=== PATIENT | male | born 1930 | race Caucasian/White ===

== ENCOUNTER 2017-11-09 02:26 | Observation (INO) | payer MEDICARE, BC ==
--- NOTE | 2017-11-09 02:55 | EDM.PDOC ---
ED HPI GENERAL MEDICAL PROBLEM - General Chief Complaint: Neuro Symptoms/Deficits Stated Complaint: FALL MEDICAL VIA [facility] Time Seen by Provider: 11/09/17 02:44 Source of Information: Reports: Patient, EMS, Old Records, RN Notes Reviewed History Limitations: Reports: Other (Elderly, frail) - History of Present Illness INITIAL COMMENTS - FREE TEXT/NARRATIVE: EMS transfer from home after 4 falls 87-year-old male with history of hypertension and chronic lymphedema lives at home with his , uses a walker to get around, no recent illness or infection but has had gradually declining strength over the last 2 years. Today he had 4 falls at home, 3 of them he was able to get up on his own blood before they just couldn't get enough strength is legs to stand up. He has chronic pain in his right shoulder which limits his strength. No pain from falling tonight. He is not on blood thinners In September 2015 he was admitted for 2 nights to the hospital because of weakness and falls and discharged to rehabilitation bed to build up his strength with therapy. No recent illness or infection, no chest pain shortness of breath or abdominal pain No history of heart attack or stroke EMS personnel lift assisted him, he was able to take a few steps but then became very shaky with a walker. - Related Data Allergies Allergy/AdvReac Type Severity Reaction Status Date / Time No Known Allergies Allergy Verified 11/09/17 02:30 Home Meds: Home Meds Chlorthalidone 1 tab PO DAILY 09/23/15 [History] Citalopram Hydrobromide [Celexa] 1 tab PO DAILY 09/23/15 [History] Furosemide 1 tab PO DAILY 09/23/15 [History] Methylphenidate HCl 1 tab PO TID 09/23/15 [History] Multivitamin [Chewable Multi Vitamin] 1 tab PO DAILY 09/23/15 [History] Simvastatin 1 tab PO BEDTIME 09/23/15 [History] Aspirin 81 mg PO DAILY 11/09/17 [History] Past Medical History Cardiovascular History: Reports: Heart Murmur Other Genitourinary History: CKD stage 3 - Past Surgical History Other Male Surgeries/Procedures: circumcision Other Musculoskeletal Surgeries/Procedures:: hx of carpal tunnel surgery bilateral Social & Family History - Tobacco Use Smoking Status *Q: Unknown Ever Smoked Years of Tobacco use: 20 Packs/Tins Daily: 1 Used Tobacco, but Quit: Yes Month Tobacco Last Used: 40 years ago Second Hand Smoke Exposure: No - Recreational Drug Use Recreational Drug Use: No ED ROS GENERAL - Review of Systems Review Of Systems: See Below Constitutional: Reports: Weakness, Other (No recent illness). Denies: Diaphoresis, Decreased Appetite, Weight Loss HEENT: Reports: No Symptoms Respiratory: Reports: No Symptoms Cardiovascular: Reports: Blood Pressure Problem (On treatment), Edema (Long- standing). Denies: Chest Pain Endocrine: Reports: Fatigue GI/Abdominal: Reports: No Symptoms : Reports: No Symptoms Musculoskeletal: Reports: Shoulder Pain (Right side for many months) Skin: Reports: Change in Color (Darker color on his left foot). Denies: Cyanosis, Rash Neurological: Reports: Difficulty Walking (Use walker), Weakness. Denies: Confusion, Dizziness, Headache Psychiatric: Reports: No Symptoms Hematologic/Lymphatic: Reports: No Symptoms ED EXAM, GENERAL - Physical Exam Exam: See Below Exam Limited By: Other (Elderly frail) General Appearance: Alert, No Apparent Distress, Other (Vital signs within normal, no difficulty speaking or breathing) Eye Exam: Bilateral Eye: EOMI, Normal Inspection Ears: Normal External Exam, Normal Canal, Normal TMs, Hearing Loss (Mild) Nose: Normal Inspection, Normal Mucosa Throat/Mouth: Normal Inspection, Normal Oropharynx, Normal Voice, Other ( Several teeth missing) Head: Atraumatic, Normocephalic Neck: Supple, Non-Tender. No: Carotid Bruit, Lymphadenopathy (R), Lymphadenopathy (L), Tender Lateral, Tender Midline Respiratory/Chest: No Respiratory Distress, Lungs Clear, No Accessory Muscle Use , Chest Non-Tender Cardiovascular: Normal Peripheral Pulses, Regular Rate, Rhythm, Systolic Murmur (Very faint loudest at left sternal border) Peripheral Pulses: 3+: Dorsalis Pedis (L), Dorsalis Pedis (R) GI/Abdominal: Normal Bowel Sounds, Soft, Non-Tender (Male) Exam: No Hernia Extremities: Normal Capillary Refill, Pedal Edema, Redness (Mild, left christianson and foot). No: Leg Pain, Increased Warmth, Pallor Neurological: Oriented, No Motor/Sensory Deficits Psychiatric: Normal Affect Skin Exam: Warm, Dry, Normal Color Course - Vital Signs Last Recorded V/S: Last Vital Signs Temp 36.8 C 11/09/17 02:28 Pulse 76 11/09/17 02:28 Resp 15 11/09/17 02:28 BP 120/56 L 11/09/17 02:28 Pulse Ox 95 11/09/17 02:28 - Orders/Labs/Meds Orders: Active Orders 24 hr Category Date Time Status EKG Documentation Completion [RC] ASDIRECTED Care 11/09/17 02:49 Active UA W/MICROSCOPIC [URIN] Stat Lab 11/09/17 03:03 Ordered EKG 12 Lead [EK] Routine Ther 11/09/17 02:48 Ordered Labs: Laboratory Tests 11/09/17 11/09/17 11/09/17 Range/Units 02:48 02:48 02:49 WBC 9.4 (4.5-11.0) K/uL RBC 3.31 L (4.30-5.90) M/uL Hgb 10.3 L (12.0-15.0) g/dL Hct 31.8 L (40.0-54.0) % MCV 96 (80-98) fL MCH 31 (27-31) pg MCHC 32 (32-36) % Plt Count 229 (150-400) K/uL Sodium 146 (140-148) mmol/L Potassium 3.8 (3.6-5.2) mmol/L Chloride 106 (100-108) mmol/L Carbon Dioxide 28 (21-32) mmol/L Anion Gap 12.3 (5.0-14.0) mmol/L BUN 65 H (7-18) mg/dL Creatinine 1.7 H (0.8-1.3) mg/dL Est Cr Clr Drug Dosing 33.94 mL/min Estimated GFR (MDRD) 38 L (>60) Glucose 104 (74-106) mg/dL Lactic Acid 1.3 (0.4-2.0) mmol/L Calcium 9.0 (8.5-10.1) mg/dL Total Bilirubin 0.4 (0.2-1.0) mg/dL AST 42 H (15-37) U/L ALT 31 (12-78) U/L Alkaline Phosphatase 55 (46-116) U/L Troponin I 0.056 (0.000-0.056) ng/mL Total Protein 6.3 L (6.4-8.2) g/dL Albumin 3.7 (3.4-5.0) g/dL Globulin 2.6 (2.3-3.5) g/dL Albumin/Globulin Ratio 1.4 (1.2-2.2) - Re-Assessments/Exams Free Text/Narrative Re-Assessment/Exam: 11/09/17 02:57 79-year-old male with gradually increasing weakness, for falls at home today, unable to get up on his own or with help from his . EMS provided lift assist but because he was very shaky on his feet even with his walker, he was brought in for evaluation. Generalized weakness Labs show normal troponin, mild anemia, unchanged from previous, moderate chronic renal failure, unchanged from previous, normal electrolytes and hepatic profile only minimal elevation in AST too weak to go home, consult hospitalist for admission, will need physical therapy rehabilitation correction facility placement or rehabilitation. 11/09/17 03:39 Departure - Departure Time of Disposition: 03:40 Disposition: Refer to Observation Condition: Serious Clinical Impression: Generalized weakness, Frequent falls - Discharge Information Referrals: PCP,None [Primary Care Provider] - Forms: ED Department Discharge - My Orders Last 24 Hours: My Active Orders 11/09/17 02:48 EKG 12 Lead [EK] Routine 11/09/17 02:49 EKG Documentation Completion [RC] ASDIRECTED 11/09/17 03:03 UA W/MICROSCOPIC [URIN] Stat - Assessment/Plan Last 24 Hours: My Active Orders 11/09/17 02:48 EKG 12 Lead [EK] Routine 11/09/17 02:49 EKG Documentation Completion [RC] ASDIRECTED 11/09/17 03:03 UA W/MICROSCOPIC [URIN] Stat
--- NOTE | 2017-11-09 04:26 | PCM.HP ---
H&P History of Present Illness - General Date of Service: 11/09/17 Admit Problem/Dx: Admission Diagnosis/Problem Admission Diagnosis/Problem Weakness Source of Information: Patient, EMS, Provider, RN History Limitations: Reports: No Limitations - History of Present Illness Initial Comments - Free Text/Narative: EMS transfer from home after 4 falls 87-year-old male with history of hypertension and chronic lymphedema lives at home with his , uses a walker to get around, no recent illness or infection but has had gradually declining strength over the last 2 years. Today he had 4 falls at home, 3 of them he was able to get up on his own before they just couldn't get enough strength is legs to stand up. He has chronic pain in his right shoulder which limits his strength. No pain from falling tonight. He is not on blood thinners In September 2015 he was admitted for 2 nights to the hospital because of weakness and falls and discharged to rehabilitation bed to build up his strength with therapy. No recent illness or infection, no chest pain shortness of breath or abdominal pain No history of heart attack or stroke EMS personnel lift assisted him, he was able to take a few steps but then became very shaky with a walker. Onset of Symptoms: Reports: Gradual Duration of Symptoms: Reports: Day(s):, Constant Location: Reports: Generalized Quality: Reports: Same as Previous Episode Severity: Moderate Improves with: Reports: None Worsens with: Reports: None Associated Symptoms: Reports: Weakness - Related Data Allergies/Adverse Reactions: Allergies Allergy/AdvReac Type Severity Reaction Status Date / Time No Known Allergies Allergy Verified 11/09/17 02:30 Home Medications: Home Meds Chlorthalidone 1 tab PO DAILY 09/23/15 [History] Citalopram Hydrobromide [Celexa] 1 tab PO DAILY 09/23/15 [History] Furosemide 1 tab PO DAILY 09/23/15 [History] Methylphenidate HCl 1 tab PO TID 09/23/15 [History] Multivitamin [Chewable Multi Vitamin] 1 tab PO DAILY 09/23/15 [History] Simvastatin 1 tab PO BEDTIME 09/23/15 [History] Aspirin 81 mg PO DAILY 11/09/17 [History] Past Medical History Cardiovascular History: Reports: Heart Murmur Other Genitourinary History: CKD stage 3 - Past Surgical History Other Male Surgeries/Procedures: circumcision Other Musculoskeletal Surgeries/Procedures:: hx of carpal tunnel surgery bilateral Social & Family History - Tobacco Use Smoking Status *Q: Unknown Ever Smoked Years of Tobacco use: 20 Packs/Tins Daily: 1 Used Tobacco, but Quit: Yes Month Tobacco Last Used: 40 years ago Second Hand Smoke Exposure: No - Recreational Drug Use Recreational Drug Use: No - Living Situation & Occupation Living situation: Reports: Occupation: Retired (lives with , [place] in [place], [place]. 3 grown children live in the [facility]. Has a home health aide once a week.) H&P Review of Systems - Review of Systems: Review Of Systems: See Below General: Reports: Weakness (for the past few days, several falls at home, tonight unable to get up, called EMS.) HEENT: Reports: No Symptoms Pulmonary: Reports: No Symptoms Cardiovascular: Reports: No Symptoms Gastrointestinal: Reports: No Symptoms Genitourinary: Reports: No Symptoms Musculoskeletal: Reports: No Symptoms Skin: Reports: No Symptoms Psychiatric: Reports: No Symptoms Neurological: Reports: No Symptoms Hematologic/Lymphatic: Reports: No Symptoms Immunologic: Reports: No Symptoms Exam - Exam Exam: See Below - Vital Signs Vital Signs: Last Vital Signs Temp 36.8 C 11/09/17 02:28 Pulse 69 11/09/17 04:00 Resp 14 11/09/17 04:00 BP 116/63 11/09/17 04:00 Pulse Ox 93 L 11/09/17 04:00 Weight: 92.533 kg - Exam General: Alert, Oriented, Cooperative HEENT: PERRLA, Conjunctiva Clear, EACs Clear, EOMI, Hearing Intact, Mucosa Moist & Barrera, Nares Patent, Other (upper Dentures (left at home), lower natural teeth) Neck: Supple, Trachea Midline Lungs: Clear to Auscultation, Normal Respiratory Effort Cardiovascular: Regular Rate, Regular Rhythm, Normal S1, Normal S2 GI/Abdominal Exam: Normal Bowel Sounds, Soft, Non-Tender, No Organomegaly, No Distention, Other (ventral hernia noted, non-tender to palpation) (Male) Exam: No Hernia, Normal Inspection Rectal (Males) Exam: Deferred Back Exam: Normal Inspection, Full Range of Motion, NT Extremities: Normal Inspection, Normal Range of Motion, Non-Tender, No Pedal Edema, Normal Capillary Refill, Pedal Edema Peripheral Pulses: 2+: Radial (L), Radial (R), Dorsalis Pedis (L), Dorsalis Pedis (R) Skin: Warm, Dry, Intact, Other (redness noted to left anterior knee, and anterior lower leg) Neurological: Cranial Nerves Intact, Reflexes Equal Bilateral, Strength Equal Bilateral, Normal Speech, Normal Tone, Sensation Intact Neuro Extensive - Mental Status: Alert, Oriented x3, Normal Mood/Affect, Normal Cognition, Memory Intact Psychiatric: Alert, Normal Affect, Normal Mood - Patient Data Lab Results Last 24 hrs: Laboratory Results - last 24 hr 11/09/17 11/09/17 11/09/17 Range/Units 02:48 02:48 02:49 WBC 9.4 (4.5-11.0) K/uL RBC 3.31 L (4.30-5.90) M/uL Hgb 10.3 L (12.0-15.0) g/dL Hct 31.8 L (40.0-54.0) % MCV 96 (80-98) fL MCH 31 (27-31) pg MCHC 32 (32-36) % Plt Count 229 (150-400) K/uL Sodium 146 (140-148) mmol/L Potassium 3.8 (3.6-5.2) mmol/L Chloride 106 (100-108) mmol/L Carbon Dioxide 28 (21-32) mmol/L Anion Gap 12.3 (5.0-14.0) mmol/L BUN 65 H (7-18) mg/dL Creatinine 1.7 H (0.8-1.3) mg/dL Est Cr Clr Drug Dosing 33.94 mL/min Estimated GFR (MDRD) 38 L (>60) Glucose 104 (74-106) mg/dL Lactic Acid 1.3 (0.4-2.0) mmol/L Calcium 9.0 (8.5-10.1) mg/dL Total Bilirubin 0.4 (0.2-1.0) mg/dL AST 42 H (15-37) U/L ALT 31 (12-78) U/L Alkaline Phosphatase 55 (46-116) U/L Troponin I 0.056 (0.000-0.056) ng/mL Total Protein 6.3 L (6.4-8.2) g/dL Albumin 3.7 (3.4-5.0) g/dL Globulin 2.6 (2.3-3.5) g/dL Albumin/Globulin Ratio 1.4 (1.2-2.2) Result Diagrams: 11/09/17 02:48 11/09/17 02:48 *Q Meaningful Use (ADM) - VTE *Q VTE Criteria *Q: - Stroke *Q Stroke Criteria *Q: - AMI *Q AMI Criteria *Q: - Problem List (1) Frequent falls SNOMED Code(s): 764700983 ICD Code: R29.6 - REPEATED FALLS Status: Acute Current Visit: Yes (2) Weakness SNOMED Code(s): 50558416 ICD Code: R53.1 - WEAKNESS Status: Acute Current Visit: Yes (3) Anemia SNOMED Code(s): 041024752 ICD Code: D64.9 - ANEMIA, UNSPECIFIED Status: Acute Current Visit: No Qualifiers: Anemia type: unspecified type Qualified Code(s): D64.9 - Anemia, unspecified (4) CKD (chronic kidney disease) stage 3, GFR 30-59 ml/min SNOMED Code(s): 780995270 ICD Code: N18.3 - CHRONIC KIDNEY DISEASE, STAGE 3 (MODERATE) Status: Acute Priority: Medium Current Visit: No Problem List Initiated/Reviewed/Updated: Yes Orders Last 24hrs: Active Orders 24 hr Category Date Time Status Patient Status Manage Transfer [TRANSFER] Routine ADT 11/09/17 04:15 Ordered EKG Documentation Completion [RC] ASDIRECTED Care 11/09/17 02:49 Active UA W/MICROSCOPIC [URIN] Stat Lab 11/09/17 03:03 Ordered Resuscitation Status Routine Resus Stat 11/09/17 04:16 Ordered EKG 12 Lead [EK] Routine Ther 11/09/17 02:48 Ordered Assessment/Plan Comment:: ASSESSMENT / PLAN 79-year-old male with gradually increasing weakness, for falls at home today, unable to get up on his own or with help from his . EMS provided lift assist but because he was very shaky on his feet even with his walker, he was brought in for evaluation. Generalized weakness Labs show normal troponin, mild anemia, unchanged from previous, moderate chronic renal failure, unchanged from previous, normal electrolytes and hepatic profile only minimal elevation in AST too weak to go home, consult hospitalist for admission, will need physical therapy rehabilitation long-term facility placement or rehabilitation. Plan Weakness -Admit Observation to [address] [place] [address] for further monitoring -IV Fluids for rehydration NS at 125 mL per hour -Advise to notify nurses of any chest pain or other symptoms -Labs; Urine micro pending History of anemia -hemoglobin stable at 10.3 Chronic Kidney Disease, stage 3, GFR 30-59 -stable Cr. 1.7, GFR 38 Maintenance issues -Orders home meds: ordered -Nutrition: regular diet -Harris catheter not indicated at this time -DVT: SCD -PPI: PO Protonix 40mg daily -consult OT for discharge planning -consult PT for strengthening. -consult Spiritual CODE STATUS: FULL CODE Admission status: Admit to Observation -I expect this patient to stay less than 24 hours, not to exceed 96 hours for evaluation and management of this problem. Disposition: home or extended care facility Primary care provider: Non listed Hospitalist: Dr. Marie
[2017-11-09] MEDS ORDERED: Ibuprofen 600 MG Tab PO PRN (04:41)
[2017-11-09] MEDS ORDERED: Albuterol 0.083% 2.5 MG/3 ML Neb Soln NEB PRN (04:41)
[2017-11-09] MEDS ORDERED: Morphine 2 MG/ML Syringe IVPUSH PRN (04:41)
[2017-11-09] MEDS ORDERED: Docusate Sodium 100 MG Cap PO PRN (04:41)
[2017-11-09] MEDS ORDERED: oxyCODONE 5 MG Tab PO PRN (04:41)
[2017-11-09] MEDS ORDERED: Ondansetron 4 MG Tab.DIS PO PRN (04:41)
[2017-11-09] MEDS ORDERED: Bisacodyl 5 MG Tab PO PRN (04:41)
[2017-11-09] MEDS ORDERED: Sodium Chloride 0.9% 1,000 ML IV SCH (04:41)
[2017-11-09] MEDS ORDERED: LORazepam 2 MG/ML SDV IV PRN (04:41)
[2017-11-09] MEDS ORDERED: Acetaminophen 325 MG Tab PO PRN (04:41)
[2017-11-09] MEDS: Pantoprazole 40 MG Tab.CR PO SCH (08:30)
[2017-11-09] MEDS: CITALOPRAM 20 MG PO SCH (08:35)
[2017-11-09] MEDS: Methylphenidate 10 MG Tab PO SCH ×3 (08:35→21:30)
[2017-11-09] MEDS: Multivitamins with Iron Tab.Chew PO SCH (08:36)
[2017-11-09] MEDS: Aspirin 81 MG Tab.EC PO SCH (08:36)
[2017-11-09] MEDS ORDERED: Furosemide 20 MG Tab*POM PO SCH (09:00)
[2017-11-09] MEDS ORDERED: CHLORTHALIDONE 25 MG PO SCH (09:00)
[2017-11-09] MEDS: CHLORTHALIDONE 25 MG PO SCH (09:30)
[2017-11-10] MEDS: Pantoprazole 40 MG Tab.CR PO SCH (08:30)
[2017-11-10 08:52] VITALS: BP 136/72
[2017-11-10] MEDS: CITALOPRAM 20 MG PO SCH (08:52)
[2017-11-10] MEDS: Multivitamins with Iron Tab.Chew PO SCH (08:52)
[2017-11-10] MEDS: Aspirin 81 MG Tab.EC PO SCH (08:53)
[2017-11-10] MEDS: CHLORTHALIDONE 25 MG PO SCH (08:53)
[2017-11-10] MEDS: Methylphenidate 10 MG Tab PO SCH (08:57)
[2017-11-10] MEDS ORDERED: Furosemide 20 MG Tab*POM PO SCH (09:00)
--- NOTE | 2017-11-10 10:46 | PCM.DCSUM1 ---
Discharge Summary - Hospital Course Brief History: 87 -year-old male with history of stage III chronic kidney disease and mild Alzheimer's dementia who presented with progressive weakness and several falls at home. He was admitted for observation and physical therapy. - Discharge Data Discharge Date: 11/10/17 Discharge Disposition: Home, Self-Care 01 Condition: Fair - Discharge Diagnosis/Problem(s) (1) Weakness SNOMED Code(s): 98227143 ICD Code: R53.1 - WEAKNESS Status: Acute Current Visit: Yes (2) CKD (chronic kidney disease) stage 3, GFR 30-59 ml/min SNOMED Code(s): 135780453 ICD Code: N18.3 - CHRONIC KIDNEY DISEASE, STAGE 3 (MODERATE) Status: Chronic Priority: Medium Current Visit: No (3) HTN (hypertension) SNOMED Code(s): 59413431 ICD Code: I10 - ESSENTIAL (PRIMARY) HYPERTENSION Status: Chronic Current Visit: No Qualifiers: Hypertension type: essential hypertension Qualified Code(s): I10 - Essential (primary) hypertension (4) Dementia without behavioral disturbance SNOMED Code(s): 87821617 ICD Code: F03.90 - UNSPECIFIED DEMENTIA WITHOUT BEHAVIORAL DISTURBANCE Status: Chronic Current Visit: No (5) Anemia SNOMED Code(s): 529274035 ICD Code: D64.9 - ANEMIA, UNSPECIFIED Status: Chronic Current Visit: No Qualifiers: Anemia type: unspecified type Qualified Code(s): D64.9 - Anemia, unspecified - Patient Summary/Data Consults: Consultations 11/09/17 04:41 Consult to Spiritual Care [CONS] Routine Special Instructions: daily prayers OT Evaluation and Treatment [CONS] Routine Please Evaluate and Treat. OT Reason for Consult: Discharge Planning Special Instructions: ambulates with walker at home This query below is only for informational purposes and is not editable. PT Evaluation and Treatment [CONS] Routine Please Evaluate and Treat. PT Reason for Consult: Ambulation Special Instructions: ambulates with walker at home This query below is only for informational purposes and is not editable. Hospital Course: Anup presented to the emergency room with weakness after several falls at home. He reports the weakness has been slowly progressive over months or possibly even the past couple of years. Workup in the emergency room was unremarkable other than his chronic kidney disease which was essentially stable. There is no evidence for infection or acute medical problem. He was not felt to be safe at home so he was admitted for observation and physical therapy evaluation. No acute events occurred overnight following admission. He was evaluated by physical therapy on a couple of occasions and it was felt that he would benefit from subacute rehabilitation with both some balance issues as well as endurance issues. He has done well with the front-wheeled walker. Vital signs have been stable during the course of the hospital stay. He'll be discharged to the [facility] today for physical and occupational therapy. - Patient Instructions Diet: Regular Diet as Tolerated Activity: As Tolerated Showering/Bathing: May Shower Notify Provider of: Fever Other/Special Instructions: 1. You were in the hospital for management of generalized weakness and frequent falls. We did not find any acute medical problems and I suspect that this weakness was caused by slow deconditioning. I do recommend fpc placement for subacute rehabilitation before returning home. I would recommend home health care and physical therapy at the time of discharge from the [facility]. 2. Continue taking your usual medications as previously prescribed. 3. Code status - full code. 4. Referral to physical and occupational therapy for strengthening in the setting of generalized weakness and poor balance. 5. Please seek medical attention if you develop fever greater than 101, have sudden onset of shortness of breath or if you develop chest pain/pressure. - Discharge Plan Prescriptions/Med Rec: Acetaminophen [Tylenol Extra Strength] 1,000 mg PO TID #100 tablet Methylphenidate HCl 10 mg PO TID #90 tablet Home Medications: Home Meds Chlorthalidone 12.5 mg PO DAILY 09/23/15 [History] Citalopram Hydrobromide [Celexa] 1 tab PO DAILY 09/23/15 [History] Furosemide 20 mg PO MOWEFR 09/23/15 [History] Multivitamin [Chewable Multi Vitamin] 1 tab PO DAILY 09/23/15 [History] Simvastatin 1 tab PO BEDTIME 09/23/15 [History] Aspirin 81 mg PO DAILY 11/09/17 [History] Acetaminophen [Tylenol Extra Strength] 1,000 mg PO TID #100 tablet 11/10/17 [Rx] Methylphenidate HCl 10 mg PO TID #90 tablet 11/10/17 [Rx] Patient Handouts: Osteoarthritis Referrals: PCP,None [Primary Care Provider] - (f/u with your primary care provider after the NH stay ) - Discharge Summary/Plan Comment DC Time >30 min.: Yes (35 - new NH discharge) - Patient Data Vitals - Most Recent: Last Vital Signs Temp 35.6 C 11/10/17 07:00 Pulse 84 11/10/17 08:50 Resp 18 11/10/17 07:00 BP 136/72 11/10/17 08:50 Pulse Ox 97 11/10/17 07:00 Weight - Most Recent: 89.074 kg I&O - Last 24 hours: Intake & Output 11/09/17 11/10/17 11/10/17 22:59 06:59 14:59 Intake Total 236 500 360 Balance 236 500 360 Lab Results - Last 24 hrs: Laboratory Results - last 24 hr 11/10/17 Range/Units 04:30 Sodium 145 (140-148) mmol/L Potassium 3.7 (3.6-5.2) mmol/L Chloride 107 (100-108) mmol/L Carbon Dioxide 29 (21-32) mmol/L Anion Gap 8.8 (5.0-14.0) mmol/L BUN 50 H (7-18) mg/dL Creatinine 1.4 H (0.8-1.3) mg/dL Est Cr Clr Drug Dosing 42.42 mL/min Estimated GFR (MDRD) 48 L (>60) Glucose 105 (74-106) mg/dL Calcium 9.0 (8.5-10.1) mg/dL Magnesium 1.9 (1.8-2.4) mg/dL Vitamin B12 672 (193-986) pg/ml TSH, Ultra Sensitive 2.529 (0.358-3.740) uIU/mL Med Orders - Current: Current Medications Acetaminophen (Tylenol) 650 mg PO Q4H PRN PRN Reason: Pain (Mild 1-3)/fever Albuterol (Proventil Neb Soln) 2.5 mg NEB Q4H PRN PRN Reason: Shortness Of Breath/wheezing Aspirin (Halfprin) 81 mg PO DAILY [facility] Last Admin: 11/10/17 08:53 Dose: 81 mg Bisacodyl (Dulcolax) 5 mg PO DAILY PRN PRN Reason: Constipation Chlorthalidone (Chlorthalidone) 12.5 mg PO DAILY [facility] Last Admin: 11/10/17 08:53 Dose: 12.5 mg Citalopram Hydrobromide (Celexa) 20 mg PO DAILY [facility] Last Admin: 11/10/17 08:52 Dose: 20 mg Docusate Sodium (Colace) 100 mg PO BID PRN PRN Reason: Constipation Furosemide (Lasix) 20 mg PO MoWeFr@0900 [facility] Last Admin: 11/10/17 08:54 Dose: 20 mg Ibuprofen (Motrin) 600 mg PO Q6H PRN PRN Reason: Pain/Fever Methylphenidate HCl (Ritalin) 10 mg PO TID [facility] Last Admin: 11/10/17 08:57 Dose: 10 mg Morphine Sulfate (Morphine) 2 mg IVPUSH Q2H PRN PRN Reason: Pain (severe 7-10) Multivitamins/Iron (Child Chew Iron) 1 tab PO DAILY [facility] Last Admin: 11/10/17 08:52 Dose: 1 tab Ondansetron HCl (Zofran Odt) 4 mg PO Q6H PRN PRN Reason: Nausea able to take PO Oxycodone HCl (Oxycodone) 5 mg PO Q4H PRN PRN Reason: Pain (moderate 4-6) Pantoprazole Sodium (Protonix) 40 mg PO ACBREAKFAST [facility] Last Admin: 11/10/17 08:30 Dose: 40 mg Simvastatin (Zocor) 20 mg PO BEDTIME [facility] Last Admin: 11/09/17 21:30 Dose: 20 mg Discontinued Medications Chlorthalidone (Chlorthalidone) 25 mg PO DAILY [facility] Furosemide (Lasix) 20 mg PO DAILY [facility] Sodium Chloride (Normal Saline) 1,000 mls @ 125 mls/hr IV ASDIRECTED [facility] Last Admin: 11/09/17 05:14 Dose: 125 mls/hr Lorazepam (Ativan) 1 mg IV Q6H PRN PRN Reason: Nausea/Vomiting - Exam Quality Assessment: Denies: Supplemental Oxygen General: Reports: Alert, Oriented, Cooperative, No Acute Distress Lungs: Reports: Normal Respiratory Effort Cardiovascular: Reports: Regular Rate, Regular Rhythm GI/Abdominal Exam: No Distention Extremities: Pedal Edema (trace bilateral ankle edema) Skin: Reports: Warm, Dry Psy/Mental Status: Reports: Alert, Normal Affect *Q Meaningful Use (DIS) - VTE *Q VTE Criteria *Q: - Stroke *Q Stroke Criteria *Q: - AMI *Q AMI Criteria *Q:
== END 2017-11-10 14:45 | disposition home or self-care (01) ==
LOC: JP.ED 02:26 → JP.MS 04:15
PROVIDERS: ADMIT Internal Medicine; ATTEND Internal Medicine
DX: R53.1 Weakness (principal); I12.9 Hypertensive chronic kidney disease with stage 1 through stage 4 chronic kidney disease, or unspecified chronic kidney disease; N18.3 Chronic kidney disease, stage 3 (moderate); F03.90 Unspecified dementia, unspecified severity, without behavioral disturbance, psychotic disturbance, mood disturbance, and anxiety; D63.1 Anemia in chronic kidney disease; Z79.82 Long term (current) use of aspirin; Z79.899 Other long term (current) drug therapy
CPT/HCPCS: 36415; 80048; 80053; 81001; 82607; 83605; 83735; 84443; 84484; 85027; 93005; 97110; 97116; 97162; 97165; 97530; 97535; 99285; A9270; J7040; 93010; 96361; 96365; 99217; 99218; G0378; J7030

== ENCOUNTER 2019-01-28 17:13 | Emergency (ER) | payer MEDICARE, BC ==
--- NOTE | 2019-01-28 17:51 | EDM.PDOC ---
ED HPI GENERAL MEDICAL PROBLEM - General Chief Complaint: Upper Extremity Injury/Pain Stated Complaint: FALL VIA NORTH Time Seen by Provider: 01/28/19 17:45 Source of Information: Reports: Patient History Limitations: Reports: No Limitations - History of Present Illness INITIAL COMMENTS - FREE TEXT/NARRATIVE: 88-year-old male who has been falling more frequently lately feel this morning onto his left shoulder. He has pain with movement of the shoulder, no significant deformity. No pain in the elbow or wrist. He points to the anterior shoulder as the source of pain. No shortness of breath or other injury. Onset: Sudden Location: Reports: Upper Extremity, Left Associated Symptoms: Denies: Fever/Chills, Headaches, Nausea/Vomiting, Shortness of Breath Left Shoulder Pain Score (Numeric/FACES): 8 - Related Data Allergies Allergy/AdvReac Type Severity Reaction Status Date / Time No Known Allergies Allergy Verified 01/28/19 17:29 Home Meds: Home Meds Chlorthalidone 25 mg PO DAILY 09/23/15 [History] Citalopram Hydrobromide [Celexa] 1 tab PO DAILY 09/23/15 [History] Furosemide 20 mg PO MOWEFR 09/23/15 [History] Multivitamin [Chewable Multi Vitamin] 1 tab PO DAILY 09/23/15 [History] Simvastatin 1 tab PO BEDTIME 09/23/15 [History] Acetaminophen [Tylenol Extra Strength] 1,000 mg PO TID #100 tablet 11/10/17 [Rx] Methylphenidate [Ritalin] 10 mg PO TID #90 tablet 11/10/17 [Rx] Past Medical History Cardiovascular History: Reports: Heart Murmur, High Cholesterol Genitourinary History: Reports: Chronic Renal Insuffiency Other Genitourinary History: CKD stage 3 Other Neuro History: dementia - Past Surgical History Other Male Surgeries/Procedures: circumcision Musculoskeletal Surgical History: Reports: Carpal Tunnel Other Musculoskeletal Surgeries/Procedures:: hx of carpal tunnel surgery bilateral Social & Family History - Tobacco Use Smoking Status *Q: Never Smoker - Caffeine Use Caffeine Use: Reports: Coffee - Recreational Drug Use Recreational Drug Use: No - Living Situation & Occupation Living situation: Reports: Occupation: Retired (lives with , [employer] in [place], [place]. 3 grown children live in the [facility]. Has a home health aide once a week.) Review of Systems - Review of Systems Review Of Systems: See Below Constitutional: Denies: Fever Respiratory: Reports: No Symptoms Cardiovascular: Reports: No Symptoms GI/Abdominal: Reports: No Symptoms Skin: Denies: Bruising Neurological: Denies: Headache ED EXAM, GENERAL - Physical Exam Exam: See Below Exam Limited By: No Limitations General Appearance: Alert, No Apparent Distress Head: Atraumatic Neck: Supple, Non-Tender Respiratory/Chest: No Respiratory Distress Extremities: Other (Comparing the shoulders there is no asymmetry, no obvious deformity of the injured shoulder on the left. Passive range of motion is reasonable with moderate tenderness, palpation tenderness is present over the anterior left shoulder. Elbow and wrist are nontender) Course - Vital Signs Last Recorded V/S: Last Vital Signs Temp 96.9 F 01/28/19 17:26 Pulse 65 01/28/19 18:27 Resp 14 01/28/19 17:26 BP 120/68 01/28/19 18:27 Pulse Ox 98 01/28/19 18:27 - Re-Assessments/Exams Free Text/Narrative Re-Assessment/Exam: 01/28/19 17:51 X-ray of the left shoulder was obtained. 01/28/19 19:29 X-ray of the left shoulder showed no fracture but because of the significant pain a CT was done which was also reassuring. Patient was able to use his walker so was discharged to follow-up if not improving satisfactorily. Departure - Departure Time of Disposition: 19:48 Disposition: Home, Self-Care 01 Condition: Fair Clinical Impression: Contusion of shoulder Qualifiers: Encounter type: initial encounter Laterality: left Qualified Code(s): S40.012A - Contusion of left shoulder, initial encounter - Discharge Information Instructions: Contusion, [id number] Referrals: Zonia Garcia PA [Primary Care Provider] - Forms: ED Department Discharge Care Plan Goals: Increase activity and use of shoulder as tolerated. Consider rechecking with orthopedics in 3-4 days if not improving satisfactorily. Return anytime sooner if worsening or you develop other concerns.
[2019-01-28 18:27] VITALS: BP 120/68
--- NOTE | 2019-01-28 18:45 | CRLCR ---
Indication: Fall. Left shoulder pain. Technique: Three views of the left shoulder were obtained. Comparison: None Findings: The humeral head is seated within the glenoid. Degenerative changes are identified at the acromioclavicular and glenohumeral joint spaces. No acute fracture or subluxation is identified. Impression: Degenerative change. Dictated by Alyssa Mejia MD @ Jan 28 2019 6:42PM Signed by Dr. Alyssa Mejia @ Jan 28 2019 6:42PM
--- NOTE | 2019-01-28 19:50 | CRLCT ---
Indication: Fall, left shoulder pain. Technique: Axial images were obtained through the left shoulder without intravenous contrast with coronal and sagittal reformatted images performed in the scanner. Comparison: Left shoulder x-ray 01/28/2019 Findings: There is no acute fracture. Note is made of subcortical cysts at the acromioclavicular joint with minimal acromioclavicular and glenohumeral osteophytes. There is a moderate shoulder effusion with calcification at the margin of the joint possibly some chondrocalcinosis as well some soft tissue calcification within the rotator cuff. Note is made of narrowing of the acromiohumeral distance with supraspinatus and some infraspinatus muscle atrophy. Impression: 1. No acute fracture or dislocation. 2. Mild glenohumeral and acromioclavicular osteoarthritis with likely moderate shoulder effusion. 3. Narrowing of the acromiohumeral distance with poor definition of the rotator cuff tendon as well as some supraspinatus and infraspinatus muscular atrophy suggesting chronic rotator cuff tears. Shoulder MRI would have improved characterization of soft tissue abnormalities. Please note that all CT scans at this facility use dose modulation, iterative reconstruction, and/or weight-based dosing when appropriate to reduce radiation dose to as low as reasonably achievable. Dictated by Jerome Artis MD @ Jan 28 2019 7:33PM Signed by Dr. Jerome Artis @ Jan 28 2019 7:49PM
== END 2019-01-28 19:49 | disposition home or self-care (01) ==
LOC: JP.ED 17:13
DX: S40.012A Contusion of left shoulder, initial encounter (principal); N18.3 Chronic kidney disease, stage 3 (moderate); E78.00 Pure hypercholesterolemia, unspecified; Z79.899 Other long term (current) drug therapy; W19.XXXA Unspecified fall, initial encounter
CPT/HCPCS: 73030-LT; 73200-LT; 99283-25